=== PATIENT | female | born 1955 | race Asian ===

== ENCOUNTER 2022-09-12 06:51 | Day surgery (SDC) | payer OTHER ==
[~2022-09-12] VITALS: Ht 167.6 cm; Wt 59.0 kg
[2022-09-12] MEDS ORDERED: diphenhydrAMINE 50 MG/ML VIAL ONE (08:00)
[2022-09-12] MEDS ORDERED: MIDAZOLAM 2 MG/2 ML VIAL ONE (08:00)
[2022-09-12] MEDS ORDERED: fentaNYL citrate 0.05 MG/ML VIAL ONE (08:00)
[2022-09-12] MEDS ORDERED: MIDAZOLAM 2 MG/2 ML VIAL IVP ONE (08:25)
[2022-09-12] MEDS ORDERED: fentaNYL citrate 0.05 MG/ML VIAL IVP ONE (08:25)
== END 2022-09-12 09:07 | disposition home or self-care (01) ==
LOC: MOR 06:51 → MMU 06:51 → MOR 09:07
PROVIDERS: ATTEND Internal Medicine Gastroenterology
DX: K21.00 Gastro-esophageal reflux disease with esophagitis, without bleeding (principal); I10 Essential (primary) hypertension; E78.00 Pure hypercholesterolemia, unspecified; E11.9 Type 2 diabetes mellitus without complications; Z88.0 Allergy status to penicillin; Z79.82 Long term (current) use of aspirin; Z79.899 Other long term (current) drug therapy; Z87.11 Personal history of peptic ulcer disease; Z20.822 Contact with and (suspected) exposure to COVID-19
CPT/HCPCS: 43239; 87426; 88305; 88312; 88313; 88342; J2250; J3010; J1200

== ENCOUNTER 2023-12-06 09:39 | Day surgery (SDC) | payer OTHER ==
[~2023-12-06] VITALS: Ht 167.6 cm; Wt 59.0 kg
[2023-12-06] MEDS ORDERED: fentaNYL citrate 0.05 MG/ML VIAL ONE (10:33)
[2023-12-06] MEDS ORDERED: MIDAZOLAM 5 MG/5 ML VIAL ONE (10:33)
[2023-12-06] MEDS: MIDAZOLAM 5 MG/5 ML VIAL IV ONE (10:38)
== END 2023-12-06 11:51 | disposition home or self-care (01) ==
LOC: MDS 09:39 → MMU 09:41 → MDS 11:51
PROVIDERS: ATTEND Internal Medicine Gastroenterology
DX: K31.A29 Gastric intestinal metaplasia with dysplasia, unspecified (principal); K21.00 Gastro-esophageal reflux disease with esophagitis, without bleeding; I10 Essential (primary) hypertension; E11.9 Type 2 diabetes mellitus without complications; Z90.710 Acquired absence of both cervix and uterus; Z98.891 History of uterine scar from previous surgery; Z79.82 Long term (current) use of aspirin; Z88.0 Allergy status to penicillin; Z79.899 Other long term (current) drug therapy; Z98.890 Other specified postprocedural states
CPT/HCPCS: 43239; 82948; J2250; J3010